=== PATIENT | male | born 1965 | race African-American/Black ===

== ENCOUNTER 2016-07-17 15:29 | Emergency (ER) | payer SELFPAY ==
[2016-07-17] MEDS ORDERED: 0.9 % SODIUM CHLORIDE 1,000 ML IV ONE (15:44)
[2016-07-17 15:53] LABS: BASOPHILS % 0.6 (0.0-1.5); MEAN CORPUSCULAR HEMOGLOBIN 32.3 pg (28.0-34.0); MEAN CORPUSCULAR VOLUME 94.8 fl (80.0-100.0); MONOCYTES % 5.9 % (0.0-11.0); NEUTROPHILS # 6.2 # k/uL (1.4-7.7)
[2016-07-17 16:00] LABS: APPEARANCE,URINE Clear (CLEAR); COLOR,URINE Yellow (YELLOW); OCCULT BLOOD,URINE Trace-lysed (NEGATIVE); PH URINE 5.5 (5.0 - 8.0); UROBILINOGEN URINE 0.2 Eu (0.2-1.0)
[2016-07-17 16:03] LABS: AMPHETAMINE NEGATIVE ng/mL (<1000); BARBITURATES NEGATIVE ng/mL (<300); CANNABINOIDS NON NEGATIVE ng/mL (<50); COCAINE NEGATIVE ng/mL (<150); METHAMPHETAMINE NEGATIVE ng/mL (<1000); METHYLENEDIOXYMETHAMPHETAMINE NEGATIVE ng/mL (<500)
[2016-07-17 16:09] LABS: eGFR (African) > 60; eGFR (Non-African) > 60
[2016-07-17] MEDS ORDERED: ONDANSETRON HCL/PF 4 MG/ 2ML VIAL IVP ONE (16:18)
[2016-07-17] MEDS ORDERED: KETOROLAC TROMETHAMINE 30 MG/1ML VIAL IVP ONE (16:18)
[2016-07-17] MEDS ORDERED: traMADol HCL 50 MG TABLET PO ONE (16:48)
--- NOTE | 2016-07-17 17:19 | ED Physician Documentation ---
General Adult - HISTORIAN Historian: patient - HPI Stated Complaint: CP/ABD PAIN/N/V Chief Complaint: General Adult Additional Information: Pain right lower chest to right lower back, present for a year. Lives in [facility]. Has no prim hayley because the one he had didn't do anything. Pain controlled by oxycodone. Last received #30 in March. Spends 16 hours a day in bed because it hurts to move. Diagnosed with pancreatitis a year or so ago. Continues to drink. Wants pain meds. After long discussion about chronic pain. says he has fdc mid sternal pain that feels like someone punched him. - ROS CONST: no problems - PAST HX Past History: other (pancreatitis; chronic pain) Allergies/Adverse Reactions: Allergies Allergy/AdvReac Type Severity Reaction Status Date / Time No Known Allergies Allergy Verified 07/17/16 16:05 Home Medications: Ambulatory Orders Medication Instructions Recorded NK [NK] 07/17/16 - SOCIAL HX Smoking History: cigarettes Alcohol Use: heavy (?? Drank last night) Drug Use: marijuana - FAMILY HX Family History: Yes (hypertension) - VITAL SIGNS Vital Signs: Vital Signs Temp Pulse Resp BP Pulse Ox 97.3 F L 93 H 18 183/94 98 07/17/16 15:29 07/17/16 15:29 07/17/16 15:29 07/17/16 15:29 07/17/16 15:29 - REVIEWED ASSESSMENTS Nursing Assessment Reviewed: Yes Vitals Reviewed: Yes ED Results Lab/Radiology - Lab Results Lab Results: Lab Results 07/17/16 07/17/16 07/17/16 15:55 15:55 15:45 WBC RBC Hgb Hct MCV MCH MCHC RDW Plt Count Neut % (Auto) Lymph % (Auto) [place] % (Auto) Eos % (Auto) Baso % (Auto) Neut # Lymph # [place] # Eos # Baso # Reactive Lymphs % Reactive Lymphs # Sodium 138 mmol/L mmol/L (136-145) Potassium 3.7 mmol/L mmol/L (3.5-5.0) Chloride 98 mmol/L mmol/L (98-110) Carbon Dioxide 29 mmol/L mmol/L (20-32) BUN < 5 mg/dL L mg/dL (10-26) Creatinine 0.7 mg/dL mg/dL (0.4-1.5) Estimated Creat Clear 107 Est GFR ( Amer) > 60 (60 - ) Est GFR (Non-Af Amer) > 60 (60 - ) Glucose 95 mg/dL mg/dL (70-99) Calcium 10.0 mg/dL mg/dL (8.5-10.5) Total Bilirubin 0.5 mg/dL mg/dL (0.2-1.2) AST 61 U/L H U/L (0-41) ALT 38 U/L U/L (0-45) Alkaline Phosphatase 79 U/L U/L (46-116) Total Protein 8.1 g/dL g/dL (6.0-8.5) Albumin 4.7 g/dL g/dL (3.0-5.5) Amylase 82 U/L U/L (20-104) Urine Color Yellow (YELLOW) Urine Appearance Clear (CLEAR) Urine pH 5.5 (5.0 - 8.0) Ur Specific [place] <=1.005 L (1.010-1.030) Urine Protein Negative mg/dL mg/dL (NEGATIVE) Urine Ketones Negative mg/dL mg/dL (NEGATIVE) Urine Occult Blood Trace-lysed (NEGATIVE) Urine Nitrite Negative (NEGATIVE) Urine Bilirubin Negative (NEGATIVE) Urine Urobilinogen 0.2 Eu Eu (0.2-1.0) Ur Leukocyte Esterase Negative (NEGATIVE) Urine Glucose Negative mg/dL mg/dL (NEGATIVE) Opiates Screen Negative (2000 ng/mL) Oxycodone Screen Negative ng/mL ng/mL (<100) Methadone Screen Negative ng/mL ng/mL (<300) POC Urine Barbiturates Negative ng/mL ng/mL (<300) Amphetamines Screen Negative ng/mL ng/mL (<1000) POC Ur Methamphetamine Negative ng/mL ng/mL (<1000) MDMA Negative ng/mL ng/mL (<500) Benzodiazepines Screen Negative ng/mL ng/mL (<300) Cocaine Screen Negative ng/mL ng/mL (<150) Marijuana (THC) Screen Non negative ng/mL H ng/mL (<50) Ethyl Alcohol 45.0 MG/DL H MG/DL (<10.0) 07/17/16 15:45 WBC 10.20 K/ul K/ul (4.00-12.00) RBC 5.12 M/ul M/ul (3.90-5.20) Hgb 16.5 g/dL g/dL (12.0-18.0) Hct 48.5 % % (37.0-53.0) MCV 94.8 fl fl (80.0-100.0) MCH 32.3 pg pg (28.0-34.0) MCHC 34.1 g/dL g/dL (30.0-36.0) RDW 13.6 % % (11.3-14.3) Plt Count 209 K/mm3 K/mm3 (130-400) Neut % (Auto) 60.4 % % (39.0-79.0) Lymph % (Auto) 27.6 % % (16.0-50.0) [place] % (Auto) 5.9 % % (0.0-11.0) Eos % (Auto) 4.0 % % (0.0-6.8) Baso % (Auto) 0.6 (0.0-1.5) Neut # 6.2 # k/uL # k/uL (1.4-7.7) Lymph # 2.8 # k/uL # k/uL (0.6-4.0) [place] # 0.6 # k/uL # k/uL (0.0-0.9) Eos # 0.4 # k/uL # k/uL (0.0-0.6) Baso # 0.1 # k/uL # k/uL (0.0-0.5) Reactive Lymphs % 1.5 % % (0.0-5.0) Reactive Lymphs # 0.2 # k/uL # k/uL (0.0-0.8) Sodium Potassium Chloride Carbon Dioxide BUN Creatinine Estimated Creat Clear Est GFR ( Amer) Est GFR (Non-Af Amer) Glucose Calcium Total Bilirubin AST ALT Alkaline Phosphatase Total Protein Albumin Amylase Urine Color Urine Appearance Urine pH Ur Specific [place] Urine Protein Urine Ketones Urine Occult Blood Urine Nitrite Urine Bilirubin Urine Urobilinogen Ur Leukocyte Esterase Urine Glucose Opiates Screen Oxycodone Screen Methadone Screen POC Urine Barbiturates Amphetamines Screen POC Ur Methamphetamine MDMA Benzodiazepines Screen Cocaine Screen Marijuana (THC) Screen Ethyl Alcohol - Orders Orders: ED Orders Category Date Time Status Place Saline Lock/IV Now Care 07/17/16 15:44 Active ABDOMEN WITH PA CHEST [ABD SERIES PA CHEST] [RAD] Stat Exams 07/17/16 Ordered AMYLASE Routine Lab 07/17/16 15:45 Completed CBC/PLATELET/DIFF Routine Lab 07/17/16 15:45 Completed CMP Routine Lab 07/17/16 15:45 Completed DRUG SCREEN URINE MEDICAL ONLY Routine Lab 07/17/16 15:55 Completed ETHANOL MEDICAL USE ONLY Routine Lab 07/17/16 15:45 Completed TROPONIN I (cTnI) Stat Lab 07/17/16 15:45 Received URINALYSIS Routine Lab 07/17/16 15:55 Completed 0.9 % Sodium Chloride [Normal Saline] 1,000 ml Med 07/17/16 15:44 Discontinued IV Q1H Ketorolac Tromethamine [Toradol] Med 07/17/16 16:18 Discontinued 30 mg IVP NOW ONE Ondansetron HCl/Pf [Zofran 4 mg/2 ml] Med 07/17/16 16:18 Discontinued 4 mg IVP NOW ONE traMADol HCL [Ultram] Med 07/17/16 16:48 Discontinued 50 mg PO NOW ONE General Adult Physical Exam - PHYSICAL EXAM GENERAL APPEARANCE: no distress EENT: eye inspection normal, ENT inspection normal, HUAN NECK: normal inspection, supple RESPIRATORY: no resp distress, chest non-tender (delfino), breath sounds normal ( area not tender. Tight distal thorax and right lumbar paraspinous muscles quite tender to touch) CVS: reg rate & rhythm, heart sounds normal, no murmur ABDOMEN: soft, normal bowel sounds RECTAL: deferred BACK: normal inspection SKIN: warm/dry, normal color EXTREMITIES: no evidence of injury, no edema NEURO: CN's nml as tested, motor nml, sensation nml Discharge Clincal Impression: Chronic pain Referrals: Primary Doctor,No [Primary Care Provider] - 2 Days Additional Instructions: Being in bed 16 hours a day contributes to your pain. Your labs were within normal ranges. Avoid alcohol and all smoke. Home Medications: Ambulatory Orders NK [NK] 07/17/16 Condition: Fair Disposition: 01 HOME, SELF-CARE Decision to Admit: NO Decision Time: 17:20
[2016-07-17 19:09] VITALS: BP 160/92
--- NOTE | 2016-07-17 22:50 | Diagnostic Imaging Report ---
STELLA LUGO [facility] [id number] [facility] [address] [place], [place]. [address] Report Submission Date: July 17, 2016 4:23:03 PM CDT Patient Study Name: RADHA WOODS Date: July 17, 2016 3:58:05 PM CDT Modality Type: CR Gender: M Description: CHEST,ABDOMEN : 69 Institution: [facility] Physician: STELLA LUGO Abdominal series 4 views History: RUQ PAIN AND LOWER RIGHT SIDED PAIN FOR ABOUT A YEAR, WORSE TODAY (Hx ) / RUQ AND FLANK PAIN; HX OF PANCREATITIS No comparison studies Chest: Heart is normal in size. There is minimal bibasilar atelectasis. No pleural effusion No free intraperitoneal air Abdomen: Nonobstructive bowel gas pattern. IVC filter seen in the midabdomen. Slightly prominent small bowel loops in the mid abdomen No acute osseous pathology. No obvious abnormal calcification. Impression: No free intraperitoneal air Nonobstructive bowel gas pattern. Minimal bibasal atelectasis. Electronically signed on July 17, 2016 4:23:03 PM CDT by: Sharon BACON
== END 2016-07-17 17:35 | disposition home or self-care (01) ==
LOC: ED 15:29
DX: R07.9 Chest pain, unspecified (principal); R10.9 Unspecified abdominal pain; G89.29 Other chronic pain
CPT/HCPCS: 74022; 80053; 80320; 80377; 81002; 82150; 84484; 85025; J1885; J2405; J7030; 96361; 96374; 96375; 99283; G0480; G0481; S1016